=== PATIENT | female | born 1985 | race Caucasian/White ===

== ENCOUNTER 2017-12-13 11:27 | Emergency (ER) | payer BC ==
--- NOTE | 2017-12-13 11:30 | PDOC ---
History of Present Illness - General Chief Complaint: Injury Stated Complaint: FELL LEFT ANKLE PAIN Time Seen by Provider: 12/13/17 11:29 History Source: Patient - History of Present Illness Initial Comments: 32 year old female with no PMH presenting with left ankle pain and inability to bear weight after mechanical trip and fall. States that she was 5 steps from the bottom in her home while carrying her 2 year old son and mis-stepped bending her ankle inward after which she fell forward onto her elbows and legs holding her son and protecting her child. Denies head trauma or LOC. She states that her left foot was bent inward for a few minutes while she was down on the floor for 15 minutes. She then was able to stand on her toes with some slight pain. Denies any bleeding or skin breakage. She admits to some slight nausea after the fall but no vomiting, fevers, chills, headache, chest pain, lightheadedness, SO, or other symptoms. Denies any numbness or tingling of her toes. She has broken her right foot in the past and sprained her right ankle. She states that this pain is worse than her sprain and similar to her foot fracture in the past. 12/13/17 12:10 Past History - Past Medical History Allergies/Adverse Reactions: Allergies Allergy/AdvReac Type Severity Reaction Status Date / Time No Known Allergies Allergy Verified 12/13/17 11:37 Home Medications: Ambulatory Orders Naproxen 500 mg PO BID PRN #14 tablet 12/13/17 Oxycodone HCl/Acetaminophen [Percocet 5-325 mg Tablet] 1 tab PO Q6H PRN #6 tablet MDD 4 12/13/17 Asthma: No Cancer: No Cardiac Disorders: No Diabetes: No HTN: No Seizures: No Thyroid Disease: No - Suicide/Smoking/Psychosocial Hx Smoking History: Never smoked Have you smoked in the past 12 months: No Hx Alcohol Use: No Drug/Substance Use Hx: No Substance Use Type: None Hx Substance Use Treatment: No Review of Systems - Review of Systems Constitutional: No: Chills, Diaphoresis, Night Sweats HEENTM: No: Eye Pain, Blurred Vision, Recent change in vision Respiratory: No: Cough, Shortness of Breath, Wheezing Cardiac (ROS): No: Chest Pain, Edema, Irregular Heart Rate, Lightheadedness ABD/GI: Yes: Nausea. No: Diarrhea, Vomiting : No: Dysuria, Frequency Musculoskeletal: Yes: Joint Pain, Joint Swelling, Joint Stiffness Integumentary: No: Erythema, Flushing, Lesions, Lumps Neurological: No: Headache, Numbness, Tingling, Weakness Psychiatric: No: Anxiety, Depression Endocrine: No: Excessive Sweating, Flushing, Increased Urine, Unexplained Weight Gain, Unexplained Weight Loss Hematologic/Lymphatic: No: Blood Clots, Easy Bleeding, Easy Bruising *Physical Exam - Physical Exam General Appearance: Yes: Nourished, Appropriately Dressed. No: Apparent Distress HEENT: positive: EOMI, BELA, Normal ENT Inspection, Normal Voice Neck: positive: Trachea midline, Normal Thyroid, Supple. negative: Tender, Rigid Respiratory/Chest: positive: Lungs Clear, Normal Breath Sounds. negative: Chest Tender, Respiratory Distress, Accessory Muscle Use Cardiovascular: positive: Regular Rhythm, Regular Rate Gastrointestinal/Abdominal: positive: Normal Bowel Sounds, Flat, Soft. negative : Tender Musculoskeletal: positive: Decreased Range of Motion, Other (Left ankle limited lateral and medial range of motion. Able to plantar flex but limited dorsiflexion. TTP over base of 5th metatarsal, posterio medial mal, posterior lateral mal, navicular bone, and planter midfoot. Also + Hopkin's test with tenerness to area just below her knee.). negative: Normal Inspection Extremity: positive: Normal Capillary Refill, Tender. negative: Normal Inspection (Per MSK section), Normal Range of Motion Integumentary: positive: Normal Color, Dry, Warm Neurologic: positive: Fully Oriented, Alert, Normal Mood/Affect, Normal Response , Motor Strength 5/5 Medical Decision Making - Medical Decision Making 32 year old female with inversion injury to her left ankle and concern for ankle fracture with Lander ankle criteria overtly positive. Additionally concerned for syndesmotic injury with positive Anguiano test. Will get films of left foot, ankle, tib/fib, and knee two view. Patient refusing upreg. 12/13/17 12:22 XRs negative for fracture or syndesomotic disruption and read as such by our radiologist. APpears to be a soft tissue injury / low grade sprain. Will DC with sahara wrap and 6 percocets. Counselled patient on RICE precautions and return precautions. 12/13/17 14:04 *DC/Admit/Observation/Transfer Diagnosis at time of Disposition: Left ankle sprain - Discharge Dispostion Disposition: HOME Condition at time of disposition: Good - Prescriptions Prescriptions: Naproxen 500 mg PO BID PRN #14 tablet PRN Reason: Pain Oxycodone HCl/Acetaminophen [Percocet 5-325 mg Tablet] 1 tab PO Q6H PRN #6 tablet MDD 4 PRN Reason: Pain - Referrals Referrals: Shyann Wheeler MD [Primary Care Provider] - Fidel Dumont MD [Staff Physician] - - Patient Instructions Printed Discharge Instructions: DI for Ankle Sprain, How to Apply an Elastic Wrap on Ankle Additional Instructions: Take naproxen twice a day for pain and swelling for the next 3 days. If the naproxen is not controlling your pain, take percocet every [address] machinery if you take percocet. Apply ice 3-4 times per day Keep your left foot elevated as much as possible Follow up with the orthopedic doctor within 1 week Return to the emergency department if you have any new, worsening, or concerning symptoms - Post Discharge Activity
[2017-12-13 11:37] VITALS: BP 133/83; PULSE 80; TEMP 98.2; BMI 40.3
--- NOTE | 2017-12-13 12:46 | PDOC ---
Attending Attestation - Resident Resident Name: Mat Norris - ED Attending Attestation I have performed the following: I have examined & evaluated the patient, The case was reviewed & discussed with the resident, I agree w/resident's findings & plan, Exceptions are as noted - HPI HPI: 12/13/17 12:49 32yo F no PMH presents to the ED with L ankle pain after a fall down 5 stairs 1 hour [employer]. Pt reports she was carrying her 2yo son down the stairs, missed a step and fell down 5 steps inverting her L ankle. She reports she landed on her elbows b/l but denies any pain or swelling there. Denies head strike or LOC. States her son is okay as she shielded him from the fall. Took 3 ibuprofen for pain with minimal relief. Is able to tip toe on her foot but with pain - Physicial Exam PE: 12/13/17 13:11 Gen: WA, NAD, AOX3 CV: RRR, no MRG Pulm: CTAB Abd: NTND, no bruising distention Ext: L ankle with 2+ DP and TP pulse (symmetric compared to RLE), warm, well perfused. Normal sensation and strength with dorsi and plantar flexion. No bruising. +edema to lateral malleolus. +TTP to lateral malleolus and distal tibia. No deformities. No ttp to 5th metatarsal or navicular bones. - Medical Decision Making 12/13/17 13:14 32yo F presents with L ankle pain after inversion injury. LLE is NVI. Will obtain XR to r/o bony injury. Percocet for pain. Pt insists she is not , does not want UPT checked. 12/13/17 13:19 XR neg for bony injury Likely ligamentous injury Unlikely lisfranc injury due to mechanism and pt able to bear weight on tippy toes. Also, no forefoot/midfoot edema or plantar arch ecchymosis. Pain improved with percocet, will provide sahara wrap, crutches and ortho f/u Stable for DC home I discussed the physical exam findings, ancillary test results and final diagnoses with the patient. I answered all of the patient's questions. The patient was satisfied with the care received and felt comfortable with the discharge plan and treatment plan. The patient will call their primary care physician within 24 hours to arrange follow-up and will return to the Emergency Department with any new, persistent or worsening symptoms. Discharge Disposition - Diagnosis Left ankle sprain - Discharge Dispostion Disposition: HOME Condition at time of disposition: Good Last Admission D/C Date: 09/07/15 Decision to Admit order: No - Referrals Referrals: Shyann Wheeler MD [Primary Care Provider] - Fidel Dumont MD [Staff Physician] - - Patient Instructions Printed Discharge Instructions: DI for Ankle Sprain, How to Apply an Elastic Wrap on Ankle Additional Instructions: Take naproxen twice a day for pain and swelling for the next 3 days. If the naproxen is not controlling your pain, take percocet every [address] machinery if you take percocet. Apply ice 3-4 times per day Keep your left foot elevated as much as possible Follow up with the orthopedic doctor within 1 week Return to the emergency department if you have any new, worsening, or concerning symptoms - Post Discharge Activity
== END 2017-12-13 13:40 | disposition home or self-care (01) ==
LOC: FER 11:27
DX: S93.402A Sprain of unspecified ligament of left ankle, initial encounter (principal); W10.9XXA Fall (on) (from) unspecified stairs and steps, initial encounter; Y93.89 Activity, other specified; Y92.89 Other specified places as the place of occurrence of the external cause
CPT/HCPCS: 73560-TC-LT-FY; 73590-TC-LT-FY; 73610-TC-LT-FY; 73630-TC-LT; 99282-25

== ENCOUNTER 2023-12-13 04:18 | Day surgery (SDC) | payer BC ==
[2023-12-09 16:11] VITALS: BMI 31.8
[2023-12-13] MEDS ORDERED: ACETAMINOPHEN 325 MG TABLET (FP) PO PRN (10:14)
[2023-12-13] MEDS ORDERED: IBUPROFEN 400 MG TABLET (FP) PO PRN (10:14)
[2023-12-13] MEDS ORDERED: ONDANSETRON 4 MG/2 ML VIAL ONE (10:17)
[2023-12-13] MEDS ORDERED: KETOROLAC TROMETHAMINE 30 MG/1 ML VIAL ONE (10:17)
[2023-12-13] MEDS ORDERED: MIDAZOLAM HCL 2 MG/2 ML SINGLE DOSE VIAL ONE (10:18)
[2023-12-13] MEDS ORDERED: DEXAMETHASONE SOD PHOSPHATE 4 MG/1 ML VIAL ONE (10:49)
[2023-12-13] MEDS ORDERED: PROPOFOL 40 ML ONE (11:02)
[2023-12-13] MEDS: ONDANSETRON 4 MG/2 ML VIAL IVPUSH PRN (11:37)
[2023-12-13] MEDS ORDERED: LACTATED RINGERS SOLUTION 1,000 ML IV SCH (11:45)
[2023-12-13 12:18] VITALS: RESP 16
[2023-12-13 13:17] VITALS: BP 118/74; PULSE 76; TEMP 97.1
== END 2023-12-13 13:28 | disposition home or self-care (01) ==
LOC: JASU-SURG 04:18
PROVIDERS: ATTEND Obstetrics & Gynecology
PROC: 0UB97ZZ Excision of Uterus, Via Natural or Artificial Opening (ICD-10-PCS; principal; 2023-12-13 10:30)
DX: D25.0 Submucous leiomyoma of uterus (principal); N84.0 Polyp of corpus uteri
CPT/HCPCS: 81025; 88305-TC; 94760